=== PATIENT | female | born 1995 | race Hispanic/Latino ===

== ENCOUNTER 2020-03-24 21:12 | Emergency (ER) | payer BC, OTHER ==
[2020-03-24] MEDS ORDERED: ACETAMINOPHEN EXTRA STRENGTH 500 MG TABLET ONE (21:33)
[2020-03-24 22:12] LABS: RAPID GROUP A STREP NEGATIVE (NEGATIVE)
[2020-03-24] MEDS ORDERED: IBUPROFEN 800 MG TAB ONE (22:37)
== END 2020-03-24 23:49 | disposition home or self-care (01) ==
LOC: EDH 21:12
DX: R50.9 Fever, unspecified (principal); R05 Cough; M79.10 Myalgia, unspecified site; Z20.828 Contact with and (suspected) exposure to other viral communicable diseases; Z98.890 Other specified postprocedural states
CPT/HCPCS: 87426; 87804 ×2; 87880; 99283; U0003